=== PATIENT | female | born 1990 | race Caucasian/White ===

== ENCOUNTER 2018-05-22 06:00 | Inpatient (IN) | payer OTHER ==
[2018-05-22] MEDS ORDERED: EPSOM SALT 454 GM TP PRN (07:48)
[2018-05-22] MEDS ORDERED: LR 500 ML IV PRN (07:48)
[2018-05-22] MEDS ORDERED: OXYTOCIN/RINGERS LACTATE 1,000 ML IV PRN (07:48)
[2018-05-22] MEDS ORDERED: OLIVE OIL 118 ML BTL MISC PRN (07:48)
[2018-05-22] MEDS ORDERED: IBUPROFEN 600 MG TAB PO PRN (07:48)
[2018-05-22] MEDS ORDERED: TERBUTALINE SULFATE 1 MG/ML VIAL IV PRN (07:48)
[2018-05-22] MEDS ORDERED: LIDOCAINE 1% 300 MG/30 ML SDV SC PRN (07:48)
[2018-05-22] MEDS ORDERED: LR 1,000 ML IV PRN (07:48)
[2018-05-22] MEDS ORDERED: AMMONIA AROMATIC 1 EACH AMP IH PRN (07:48)
[2018-05-22] MEDS ORDERED: MISOPROSTOL 200 MCG TAB PO PRN (07:48)
[2018-05-22] MEDS ORDERED: OXYTOCIN/RINGERS LACTATE 500 ML IV SCH (07:48)
[2018-05-22 08:15] LABS: PLATELET COUNT 195 10^3/uL (150-400)
--- NOTE | 2018-05-22 11:10 | PDGENHP ---
History and Physical - Chief Complaint Elective IOL - History of Present Illness Moni is a 28 yo today at 39w2d by ADI of 05/27/18 by 1st tri US (NOT c/ w LMP) for elective induction. Overall uncomplicated second - her first was delivered by in 2015 - 7#8oz baby boy Donald, spontaneous labor at 41+ wks. She was recently checked and was 3cm in clinic. GBS negative. otherwise complicated by depression on Celexa 30mg daily, Transfer from [facility] at 15wks, Psoriasis (no meds), ADI changed by dating US. Also anemic at 28 wks Hct 33 on iron. labs: A pos Antibody neg RPR NR Rubella IMMUNE Hep B neg HIV neg Standard negative History Information - Allergies/Home Medication List Allergies/Adverse Reactions: No Known Allergies Allergy (Unverified 09/27/09 21:29) Home Medications: Control 09/27/09 [Last Taken Unknown] I have personally reviewed and updated: family history, medical history, social history, surgical history Past Medical History: Anemia, Depression on SSRI, Psoriasis, h/o SAB at 5 wks ( no D&C) - Surgical History Additional surgical history: w G1, Tonsils age 17, TMJ reconstruction 2017 - Family History Positive for: non-pertinent - Social History Smoking Status: Never smoked Review of Systems Review of Systems: ROS: 10pt was reviewed & negative except for what was stated in HPI & below Physical Exam Physical Exam: Appears comfortable, pleasant. Abd gravid, longitudinal FHR 125, mod edwar, accels present, no decels. [place] q 4-5 mins on 4mu of Pit this AM. SCE 3cm in clinic last week. Lab Data & Imaging Review 05/22/18 08:05 WBC 6.96 10^3/uL (3.80-9.50) 05/22/18 08:05 RBC 3.77 10^6/uL (4.18-5.33) L 05/22/18 08:05 Hgb 11.7 g/dL (12.6-16.3) L 05/22/18 08:05 Hct 34.9 % (38.0-47.0) L 05/22/18 08:05 MCV 92.6 fL (81.5-99.8) 05/22/18 08:05 MCH 31.0 pg (27.9-34.1) 05/22/18 08:05 MCHC 33.5 g/dL (32.4-36.7) 05/22/18 08:05 RDW 13.2 % (11.5-15.2) 05/22/18 08:05 Plt Count 195 10^3/uL (150-400) 05/22/18 08:05 MPV 10.0 fL (8.7-11.7) 05/22/18 08:05 Neut % (Auto) 67.8 % (39.3-74.2) 05/22/18 08:05 Lymph % (Auto) 19.8 % (15.0-45.0) 05/22/18 08:05 [place] % (Auto) 9.5 % (4.5-13.0) 05/22/18 08:05 Eos % (Auto) 1.0 % (0.6-7.6) 05/22/18 08:05 Baso % (Auto) 0.6 % (0.3-1.7) 05/22/18 08:05 Nucleat RBC Rel Count 0.0 % (0.0-0.2) 05/22/18 08:05 Absolute Neuts (auto) 4.72 10^3/uL (1.70-6.50) 05/22/18 08:05 Absolute Lymphs (auto) 1.38 10^3/uL (1.00-3.00) 05/22/18 08:05 Absolute Monos (auto) 0.66 10^3/uL (0.30-0.80) 05/22/18 08:05 Absolute Eos (auto) 0.07 10^3/uL (0.03-0.40) 05/22/18 08:05 Absolute Basos (auto) 0.04 10^3/uL (0.02-0.10) 05/22/18 08:05 Absolute Nucleated RBC 0.00 10^3/uL (0-0.01) 05/22/18 08:05 Immature Gran % 1.3 % (0.0-1.1) H 05/22/18 08:05 Immature Gran # 0.09 10^3/uL (0.00-0.10) 05/22/18 08:05 Patient ABO/Rh A POSITIVE 05/22/18 08:05 Antibody Screen NEGATIVE 05/22/18 08:05 Assessment & Plan Assessment: 28 yo at 39w2d here for elective IOL. - Pit started this AM, GBS negative. - Will AROM once in regular labor pattern. - Will want epidural. - Rh neg, Rubella immune. - Depression: Cont Celexa 30mg PP. - Anemia: Iron supps PRN. JM
[2018-05-22] MEDS ORDERED: fentaNYL 2MCG/ML/BUP 0.1% RTU 100 ML BAG EP ONE (16:57)
[2018-05-22] MEDS ORDERED: BUPIVACAINE 0.25% 10 ML SDV ONE (16:57)
[2018-05-22] MEDS ORDERED: NALOXONE HCL 0.4 MG/ML INJ IVP PRN (17:25)
[2018-05-22] MEDS ORDERED: METOCLOPRAMIDE 10 MG/2 ML VIAL IVP PRN (17:25)
[2018-05-22] MEDS ORDERED: ONDANSETRON 4 MG/2 ML VIAL IVP PRN (17:25)
--- NOTE | 2018-05-22 17:27 | PREANESOB ---
Obstetric Pre-Anesthesia Info - General Info Proposed Procedure: EMILY : 3 Para: 1 ADI: 05/27/18 Gestational Age: 39 week(s) and 2 day(s) - Info Status: Full Term Monitors: External FHR Pattern: Reassuring - Labor Status PIH: No Magnesium Sulfate in Use: No Indications for Labor Analgesia: Pain Control Labor Epidural: Proposed Anesthesia Allergies/Adverse Reactions: Allergy/AdvReac Type Severity Reaction Status Date / Time No Known Allergies Allergy Unverified 09/27/09 21:29 Home Medications: Medication Instructions Recorded Control 09/27/09 Cephalexin [Keflex] 500 mg PO QID #20 cap 09/27/09 Phenazopyridine HCl [Pyridium] 200 mg PO TID PRN #10 tab 09/27/09 Visit Medications: Generic Name Dose Route Start Last Admin Trade Name Freq PRN Reason Stop Dose Admin Ammonia (Aromatic Spirit) 1 each 05/22/18 07:48 Ammonia Aromatic IH 06/01/18 07:47 ONCE PRN Fainting Lactated Ringer's 500 mls @ 500 mls/hr 05/22/18 07:48 Lr IV PRN PRN Maternal Hypotension Lactated Ringer's 1,000 mls @ 0 mls/hr 05/22/18 07:48 Lr IV 05/23/18 07:47 PRN PRN SEE PROTOCOL CONDITIONS Protocol Per Protocol Oxytocin/Lactated Ringer's 500 mls @ 0 mls/hr 05/22/18 07:48 Pitocin 30 Units/Lr (Premix) IV 11/18/18 07:47 CONT ABRAHAM Protocol Per Protocol Oxytocin/Lactated Ringer's 1,000 mls @ 0 mls/hr 05/22/18 07:48 Pitocin 20 Units/Lr (Premix) IV PRN PRN Post bleeding As Directed Ibuprofen 600 mg 05/22/18 07:48 Motrin PO ONCE PRN post , pain Lidocaine HCl 300 mg 05/22/18 07:48 Lidocaine Hcl 1% SC 11/18/18 07:47 ONCE PRN episiotomy Magnesium Sulfate 454 gm 05/22/18 07:48 Epsom Salt TP 11/18/18 07:47 Q1H PRN perineal discomfort Misoprostol 800 - 1,000 mcg 05/22/18 07:48 Cytotec PO 11/18/18 07:47 ONCE PRN Vaginal [place]y/Bleeding [place] Oil 118 ml 05/22/18 07:48 Sweet Oil MISC 11/18/18 07:47 ONCE PRN perineal massage Terbutaline Sulfate 0.25 mg 05/22/18 07:48 Brethine IV 11/18/18 07:47 ONCE PRN Tachysystole Discontinued Medications Generic Name Dose Route Start Last Admin Trade Name Freq PRN Reason Stop Dose Admin Bupivacaine HCl Confirm 05/22/18 16:57 Sensorcaine 0.25% Sdv Administered 05/22/18 16:58 Dose 10 ml .ROUTE .STK-MED ONE Fentanyl/Bupivacaine HCl Confirm 05/22/18 16:57 Fentanyl/Bupivacaine/Ns 2 Mcg/Ml 0.1% (Premix Administered 05/22/18 16:58 Dose 100 ml EP .STK-MED ONE - Anesthesia History Response to Local Anesthetics: Not Applicable Anesthesia & Operative History: No Prior Problems Family Anesthesia History: Not Applicable - Vital Signs Height/Weight (Nursing): Height 172.72 cm Weight 77.111 kg - Focused Exam Neck exam: FROM Mallampati Score: Class 2 Mouth exam: normal dental/mouth exam Pulmonary: no respiratory distress Cardiovascular: regular rate and rhythym Labs: 05/22/18 08:05 Patient ABO/Rh A POSITIVE 05/22/18 08:05 - Plan Anesthetic Plan: EMILY Consent Signed and on Chart: Yes Patient/Guardian Understands and Agrees to Plan: Yes Urgent/Emergent Case: Shea jonas completed preop but documented later for safe timely pt care
--- NOTE | 2018-05-22 17:28 | POSTANESTH ---
Post Anesthetic Evaluation Cardiovascular Status: Normal, Stable Respiratory Status: Normal, Stable Level of Consciousness/Mental Status: Can Participate in Eval, Alert and Oriented Pain Control: Adequate, Prn Tx Ordered Nausea/Vomiting Control: Adequate, Prn Tx Ordered Complications Possibly Related to Anesthesia: None Noted
[2018-05-22] MEDS ORDERED: LR 500 ML IV SCH (17:30)
[2018-05-22] MEDS ORDERED: fentaNYL 2MCG/ML/BUP 0.1% RTU 100 ML EP SCH (17:30)
--- NOTE | 2018-05-22 17:41 | OBPROG ---
Labor Progress Note Assessment/Plan: Assessment: 28 yo at 39w2d here for elective IOL. - Pit started this AM, GBS negative. - AROM now - clear fluid. - Will want epidural. - Rh neg, Rubella immune. - Depression: Cont Celexa 30mg PP. - Anemia: Iron supps PRN. CHANCE Subjective/Intrapartum Course: 05/22/18 17:41 Feeling regular ctx's, no super painful, but getting uncomfortable Objective: 05/22/18 08:05 Patient ABO/Rh A POSITIVE 05/22/18 08:05 - SVE Dilation (cm): 4 Effacement (%): 75 Station: -1 Membranes: AROM (AROM performed during this exam, clear fluid) Amniotic Fluid Color: Clear - Contraction Pattern Assessment Current Contraction Pattern: Regular - FHR Assessment Twin A FHR (bpm): 125 FHR Pattern Variability: Moderate FHR Category: 1 Oxytocin Orders Assessment - Pre-Induction/Augmentation Assessment Gestational Age: 39 week(s) and 2 day(s) ICD10 Worksheet Patient Problems: Problems Problem Status Onset Anemia affecting Acute Depression Acute - ICD10 Problem Qualifiers (1) Depression Qualifiers: Depression Type: unspecified Qualified Code(s): F32.9 - Major depressive disorder, single episode, unspecified (2) Anemia affecting Qualifiers: Trimester: third trimester Qualified Code(s): O99.013 - Anemia complicating , third trimester
[2018-05-22] MEDS ORDERED: LIDOCAINE 1% 300 MG/30 ML SDV ONE (17:58)
[2018-05-22] MEDS ORDERED: OLIVE OIL 118 ML BTL MISC ONE (17:59)
[2018-05-22] MEDS ORDERED: MISOPROSTOL 200 MCG TAB ONE (17:59)
[2018-05-22] MEDS ORDERED: TERBUTALINE SULFATE 1 MG/ML VIAL ONE (17:59)
[2018-05-22] MEDS ORDERED: OXYTOCIN 10 UNIT/ML VIAL ONE (17:59)
[2018-05-22] MEDS ORDERED: AMMONIA AROMATIC 1 EACH AMP IH ONE (17:59)
--- NOTE | 2018-05-22 20:01 | OBDEL ---
Info Type: Vaginal Presentation at Delivery: Vertex L&D Analgesia/Anesthesia Type: Epidural GBS+: No Intrapartum Medications: Discontinued Medications Generic Name Dose Route Start Last Admin Trade Name [place] PRN Reason Stop Dose Admin Ibuprofen 600 mg 05/22/18 07:48 05/22/18 19:19 Motrin PO 600 mg ONCE PRN Administration post , pain - Hospital Course Intrapartum: 05/22/18 17:41 Feeling regular ctx's, no super painful, but getting uncomfortable Indications for Delivery: Elective Vaginal Delivery - Delivery Provider Delivery Physician/CNM: Brandon Castellano - Labor and Delivery Onset of Contractions Date: 05/22/18 Onset of Contractions Time: 08:35 Onset of Contractions Type: Augmented Rupture of Membranes Date: 05/22/18 Rupture of Membranes Time: 14:52 Rupture of Membranes Type: Artificial Amniotic Fluid Color: Clear Dilation Complete Date: 05/22/18 Dilation Complete Time: 18:25 Placenta Delivery Date: 05/22/18 Placenta Delivery Time: 18:46 Total Hours of Labor: 10 Non-surgical Procedures: Amniotomy Laceration: Other (Specify) (None) Vaginal Sponge Count Correct: Yes Vaginal Needle Count Correct: Yes Vaginal Sweep Performed: Yes EBL: 250cc Delivery Events: None Delivery Comment: Pitocin started on arrival, AROM at 4cm before epidural placement. Made rapid progress from last check of 4cm to complete and +2/5 station. Variable decels noted at this time with good return to baseline between. Patient pushed for approximately 10 minutes with excellent progress, eventually delivering vigorous male in direct OA position w compound presentation - right shoulder anterior with left arm/hand compound up near cheek. Baby up to mom's chest. Delayed cord clamping for approximately 2 minutes then cord clamped and cut. Placenta delivered spontaneously, no lacerations. Mom and baby doing well in room. Sponge and sharp counts correct. EBL 250cc. - Medications Labor Augmentation/Induction Methods Used: Pitocin Labor Augmentation/Induction Indication: Elective Data ADI: 05/27/18 Gestational Age: 39 week(s) and 2 day(s) Twin A Delivery Date: 05/22/18 Delivery Time: 18:39 Sex of : Male Score (1 Min): 8 Score (5 Min): 9 Shoulder Dystocia Time Head Delivered: 18:39 Time Body Delivered: 18:39 ICD10 Worksheet Patient Problems: Problems Problem Status Onset Anemia affecting Acute Depression Acute - ICD10 Problem Qualifiers (1) Depression Qualifiers: Depression Type: unspecified Qualified Code(s): F32.9 - Major depressive disorder, single episode, unspecified (2) Anemia affecting Qualifiers: Trimester: third trimester Qualified Code(s): O99.013 - Anemia complicating , third trimester
[2018-05-22] MEDS ORDERED: DOCUSATE SODIUM 100 MG CAP PO PRN (20:03)
[2018-05-22] MEDS ORDERED: SIMETHICONE 80 MG TAB CHEW PO PRN (20:03)
[2018-05-22] MEDS ORDERED: HYDROCORTISONE 0.5% CREAM TP PRN (20:03)
[2018-05-22] MEDS ORDERED: oxyCODONE IR 5 MG TAB PO PRN (20:03)
[2018-05-22] MEDS: CITALOPRAM 20 MG TAB PO SCH (21:44)
[2018-05-23] MEDS: IBUPROFEN 600 MG TAB PO PRN ×4 (00:59→23:05)
[2018-05-23] MEDS: ACETAMINOPHEN 325 MG TAB PO PRN ×4 (00:59→23:05)
--- NOTE | 2018-05-23 09:35 | OBPP ---
Progress Note Assessment/Plan: Assessment: ppd#1 s/p uncomplicated post course breast feeding hx depression - mood stable on celexa anemia - iron started Rh+/RI 05/23/18 09:31 Subjective/ Course: 05/23/18 09:34 patient is doing well. pain is well controlled. normal lochia. recovery easier than after G1. Denies headache and changes in vision. breast feeding is going well. no concerns. Objective: 05/23/18 05:40 Patient ABO/Rh A POSITIVE 05/22/18 08:05 Temp Pulse Resp BP Pulse Ox 36.2 C 78 16 110/68 97 05/23/18 05:00 05/23/18 05:00 05/23/18 05:00 05/23/18 05:00 05/23/18 05:00 Physical Exam - Physical Exam Neck: non-tender, full range of motion Respiratory: chest non-tender, lungs clear, normal breath sounds Cardiac/Chest: normal peripheral pulses, regular rate, rhythm Abdomen: normal bowel sounds, non-tender, other (fundus firm and non tender) Extremities: normal range of motion, non-tender, normal inspection, normal capillary refill Skin: normal color, warm/dry Neuro/Psych: no motor/sensory deficits, alert, normal mood/affect, oriented x 3
[2018-05-23] MEDS: FERRO-SEQUELS 65 MG TAB.ER PO SCH (10:42)
--- NOTE | 2018-05-23 18:25 | POSTANESTH ---
Post Anesthetic Evaluation Cardiovascular Status: Normal, Stable Respiratory Status: Normal, Stable Level of Consciousness/Mental Status: Can Participate in Eval Pain Control: Adequate, Prn Tx Ordered Nausea/Vomiting Control: Adequate, Prn Tx Ordered (Epidural post-Op patient doing well no concerns) Complications Possibly Related to Anesthesia: None Noted
[2018-05-23] MEDS ORDERED: SUCROSE 1 EA UDL ONE (18:43)
[2018-05-23] MEDS: CITALOPRAM 20 MG TAB PO SCH (20:51)
[2018-05-24] MEDS: FERRO-SEQUELS 65 MG TAB.ER PO SCH (07:58)
[2018-05-24] MEDS: IBUPROFEN 600 MG TAB PO PRN (07:58)
[2018-05-24] MEDS: ACETAMINOPHEN 325 MG TAB PO PRN (07:58)
--- NOTE | 2018-05-24 20:43 | OBPP ---
Progress Note Assessment/Plan: Assessment: PPD 2 s/p mild anemia celexa for depr Plan: routine care - desires d/c 05/24/18 20:43 05/24/18 20:43 Subjective/ Course: 05/23/18 09:34 patient is doing well. pain is well controlled. normal lochia. recovery easier than after G1. Denies headache and changes in vision. breast feeding is going well. no concerns. 05/24/18 20:44 Pt doing great - BF going better. mild cramps - fidel with ibu/tyl. bottom not too sore. urinating fine. Objective: 05/23/18 05:40 Patient ABO/Rh A POSITIVE 05/22/18 08:05 Temp Pulse Resp BP Pulse Ox 36.4 C 68 14 95/78 L 97 05/23/18 20:12 05/23/18 20:12 05/23/18 20:12 05/23/18 20:12 05/23/18 05:00 Uterine Position/Fundal Height: Umbilicus -2 Uterine Tone: Firm Physical Exam - Physical Exam Abdomen: non-tender, soft, other (FF at umb -2) Extremities: non-tender, pedal edema (mild) Skin: normal color, warm/dry Neuro/Psych: alert, normal mood/affect
--- NOTE | 2018-05-24 20:47 | OBGCSDC ---
General Delivery Information - General Info : 3 Para: 2 Abortions: 1 Type: Vaginal L&D Analgesia/Anesthesia Type: Epidural Admission Date: 05/22/18 Labs: Patient ABO/Rh A POSITIVE 05/22/18 08:05 Hct 34.0 % (38.0-47.0) L 05/23/18 05:40 - Hospital Course Intrapartum: 05/22/18 17:41 Feeling regular ctx's, no super painful, but getting uncomfortable : 05/23/18 09:34 patient is doing well. pain is well controlled. normal lochia. recovery easier than after G1. Denies headache and changes in vision. breast feeding is going well. no concerns. 05/24/18 20:44 Pt doing great - BF going better. mild cramps - fidel with ibu/tyl. bottom not too sore. urinating fine. Vaginal - Delivery Provider Delivery Physician/CNM: Brandon Castellano - Diagnosis Labor: Augmented Rupture of Membranes Type: Artificial Amniotic Fluid Color: Clear Laceration: Other (Specify) (None) Delivery Events: None - Procedures Non-surgical Procedures: Amniotomy - Delivery Non-surgical Procedures: Amniotomy EBL: 250cc [place] Data ADI: 05/27/18 Gestational Age: 39 week(s) and 4 day(s) Twin A Delivery Date: 05/22/18 Delivery Time: 18:39 Sex of : Male [place] Weight (gm): 3620 g Score (1 Min): 8 Score (5 Min): 9 Discharge Information - Discharge Information Condition: Good Instruction/Follow Up: See Instruction Sheet, Four Weeks (3-4 wks with therapist ), Six Weeks (with JM)
[2018-05-25 07:06] VITALS: BP 108/66
== END 2018-05-24 11:00 | disposition home or self-care (01) | DRG 807 ==
LOC: FLD 07:00 → FOB 21:25
PROVIDERS: ADMIT Obstetrics & Gynecology; ATTEND Obstetrics & Gynecology
PROC: 10E0XZZ Delivery of Products of Conception, External Approach (ICD-10-PCS; principal; 2018-05-22)
PROC: 10907ZC Drainage of Amniotic Fluid, Therapeutic from Products of Conception, Via Natural or Artificial Opening (ICD-10-PCS; principal; 2018-05-22)
PROC: 3E097GC Introduction of Other Therapeutic Substance into Nose, Via Natural or Artificial Opening (ICD-10-PCS; principal; 2018-05-22)
DX: O32.6XX0 Maternal care for compound presentation, not applicable or unspecified (principal); O99.013 Anemia complicating pregnancy, third trimester; D64.9 Anemia, unspecified; O26.893 Other specified pregnancy related conditions, third trimester; O99.344 Other mental disorders complicating childbirth; F32.9 Major depressive disorder, single episode, unspecified; Z67.91 Unspecified blood type, Rh negative; Z3A.39 39 weeks gestation of pregnancy; Z37.0 Single live birth
CPT/HCPCS: J2590; J3105